=== PATIENT | male | born 2000 | race Caucasian/White ===

== ENCOUNTER 2021-02-08 01:52 | Emergency (ER) | payer OTHER ==
[2021-02-08] MEDS ORDERED: Lidocaine 1% (PF) 30 ML VIAL ONE (02:16)
[2021-02-08] MEDS ORDERED: Bacitracin 1 PK ONE (02:46)
[2021-02-08] MEDS ORDERED: Boostrix 0.5 ML (Tdap) VIAL ONE (02:46)
== END 2021-02-08 03:02 | disposition home or self-care (01) ==
LOC: CSHERS 01:52
DX: S61.210A Laceration without foreign body of right index finger without damage to nail, initial encounter (principal); Y04.0XXA Assault by unarmed brawl or fight, initial encounter
CPT/HCPCS: 12001; 90471; 90715; J2001